=== PATIENT | male | born 1975 | race Caucasian/White ===

== ENCOUNTER 2020-06-04 11:39 | Inpatient (IN) | payer BC, SELFPAY ==
[2020-06-04] VITALS (22 sets, daily range): BP systolic 130–212; BP diastolic 89–127; PULSE 61–95; RESP 14–23; TEMP 36.4–36.8; O2SAT 96–100; BMI 27.4
--- NOTE | ~2020-06-04 | CT_ITS ---
EXAMINATION: CTA chest DATE: 06/05/2020 18:47 INDICATION: Mid chest pain. Evaluate for dissection. TECHNIQUE: Computed tomography (CT) of the chest was performed with 100 cc Omnipaque 350 intravenous contrast. Automated exposure control and iterative reconstruction technique were employed. Exam dose: 519.81 mGy-cm total exam DLP. COMPARISON: 06/04/2020 PA and lateral chest FINDINGS: Normal size and homogeneous enhancement of the thyroid gland. No hilar or mediastinal mass lesion or lymphadenopathy. No thoracic aortic aneurysm or dissection. No CT evidence of pulmonary embolism. Normal heart size. No pericardial or pleural effusion. There is discoid atelectasis and/or scarring in the dependent lower lobes primarily. Otherwise no pul monary infiltrate or consolidation or pulmonary mass lesion is detected. Degenerative changes of the lower cervical and thoracic and upper lumbar spine. IMPRESSION: No evidence of thoracic aortic dissection or pulmonary embolism Discoid atelectasis and/or scarring in the lower lobes Reviewed, dictated and finalized at [facility]. Reviewed, dictated and finalized at location [facility].
--- NOTE | ~2020-06-04 | XR_ITS ---
EXAMINATION: XR chest 2V DATE: 06/04/2020 12:10 INDICATION: Chest pain TECHNIQUE: PA and lateral views of the chest are obtained. COMPARISON: None available FINDINGS: The lungs are free of acute opacities. There is no pleural effusion or pneumothorax. The ca rdiomediastinal silhouette is normal. The visualized bones and soft tissues are unremarkable. IMPRESSION: 1. No acute cardiopulmonary abnormality. Reviewed, dictated and finalized at location [facility].
--- NOTE | 2020-06-04 11:44 | ECG_ITS ---
Measurements Intervals [place] Rate: 89 P: 60 MN: 163 QRS: 40 QRSD: 92 T: 59 QT: 345 QTc: 421 Interpretive Statements SINUS RHYTHM POSSIBLE LEFT ATRIAL ENLARGEMENT ANTEROSEPTAL INFARCT, AGE INDETERMINATE ABNORMAL ECG Electronically Signed On 06-04-2020 15:14:22 CDT by Chencho Harper D.O.
[2020-06-04] MEDS: ASPIRIN 81 MG CHEWABLE TABLET 324 MG PO (11:56)
[2020-06-04 11:59] LABS: Basophils Percent Auto 0.5 % (0.2-1.2); Eosinophils Absolute Auto 0.1 K/mm3 (0-0.3); Eosinophils Percent Auto 1.3 % (0-4.4); Hematocrit 49.4 % (42.0-52.0); Hemoglobin 16.9 g/dL (14.0-18.0); Immature Granulocyte Absolute 0.03 K/mm3 (0.00-0.031); Immature Granulocyte Percent A 0.4 % (0-0.5); Lymphocytes Absolute Auto 1.68 K/mm3 (0.9-3.2); Lymphocytes Percent Auto 20.5 % (18.3-44.2); Mean Corpuscular HGB Conc 34.2 g/dl (32-36); Mean Corpuscular Hemoglobin 27.4 pg (26-34); Mean Corpuscular Volume 80.2 fl (80-100); Mean Platelet Volume 10.3 fl (7.4-10.4); Monocytes Absolute Auto 0.4 K/mm3 (0.1-0.6); Monocytes Percent Auto 5.4 % (2.6-8.5); Neutrophils Absolute Auto 5.9 K/mm3 (1.3-6.7); Neutrophils Percent Auto 71.9 % (45.5-73.1); Platelet Count Result 234 k/mm3 (150-375); Red Blood Count 6.16 M/mm3 (4.6-6.20); White Blood Count 8.2 K/mm3 (4.5-10.0)
[2020-06-04 12:08] LABS: INR 0.9; Prothrombin Time 12.2 Seconds (11.1-14.7)
[2020-06-04 12:09] LABS: Partial Thromboplastin Time 26.8 SECONDS (22.3-36.8)
[2020-06-04 12:14] LABS: Anion Gap 11 mmol/L (8-16); Blood Urea Nitrogen 9 mg/dL (9-20); Calcium 9.5 mg/dL (8.4-10.2); Carbon Dioxide 26 mmol/L (22-30); Chloride 95 mmol/L (98-107); Estimated CRCL calculation 120 ml/min; Estimated Glomerular Filt Rate > 60; Glucose 503 mg/dL (75-110); Potassium 3.9 mmol/L (3.4-5.0); Sodium 132 mmol/L (137-145)
[2020-06-04] MEDS: FAMOTIDINE 20 MG/2 ML VIAL IV PUSH (12:18)
[2020-06-04] MEDS: NITROGLYCERIN OINTMENT 1 INCH DOSE TRANSDERM ×2 (12:18→20:53)
[2020-06-04] MEDS: SODIUM CHLORIDE 0.9% IV 1,000 ML 999 ML IV CONT (12:20)
--- NOTE | 2020-06-04 12:29 | PC.NURSE ---
Critical lab called to ER Nurse. I told EDP
[2020-06-04 12:33] LABS: NT Pro B Type Natriuretic Pept 473 PG/ML (5-100)
[2020-06-04 12:44] LABS: D Dimer 0.27 ug/mL (<0.48)
--- NOTE | 2020-06-04 12:44 | ED.GENADULT ---
HPI - General Adult General Chief complaint: Chest Pain <Paul Morley PA-C - Last Filed: 06/04/20 13:55> Stated complaint: Chest pain since <Paul Morley PA-C - Last Filed: 06/04/20 13:55> Time Seen by Provider: 06/04/20 11:52 <Paul Morley PA-C - Last Filed: 06/04/20 13:55> Source: patient and family <JOYCE Biggs Last Filed: 06/04/20 13:55> Mode of arrival: ambulatory <Paul Morley PA-C - Last Filed: 06/04/20 13:55> Limitations: no limitations <Paul Morley PA-C - Last Filed: 06/04/20 13:55> History of Present Illness HPI narrative: Patient is a 45-year-old male who presents with several days duration of midsternal left-sided chest pain is a dull aching pain that comes and goes lasting up to 30 minutes at a time evening when it began it lasted through most of the night and finally resolved had similar occurrences on Saturday again was up last night with the pain and had recurrence this morning 45 minutes prior to arrival patient denies similar occurrence in the past or recent illness. Patient has not taken anything for his symptoms. Pain radiates into the left shoulder and into the neck. Patient has not been seen for this <Paul Morley PA-C - Last Filed: 06/04/20 13:55> Related Data Home medications: Home Medications Medication Instructions Recorded Confirmed No Home Medications 06/04/20 06/04/20 <Paul Morley PA-C - Last Filed: 06/04/20 13:55> Allergies/adverse reactions: Allergies Allergy/AdvReac Type Severity Reaction Status Date / Time Penicillins Allergy Unknown Unknown Verified 06/04/20 14:30 <JOYCE Biggs Last Filed: 06/04/20 13:55> Review of Systems Review of Systems: All systems reviewed & are unremarkable except as noted in HPI and below <Paul Morley PA-C - Last Filed: 06/04/20 13:55> PMFSH Family History Family History: Family History Father Hypertension Mother Hypertension Family history of pancreatic cancer, Onset Age: 42 Patient's mother is Other Diabetes mellitus Family history of allergic disorder Family history of malignant neoplasm <Paul Morley PA-C - Last Filed: 06/04/20 13:55> Social History Social History: Social History (Updated 06/04/20 @ 12:45 by Paul Morley PA-C) Smoking packs per day: 1 Smoking cigarettes per day: 20.0 Years smoked: 20 Smoking pack-years: 20.00 Smoking status: Current every day smoker Alcohol intake: never Substance use: current Substance use type: marijuana and opiates Gender identity (if verbalized by the patient): Male Sexual Orientation (if Verbalized by the Patient): Straight or Heterosexual Spiritual care concerns: No <Paul Morley PA-C - Last Filed: 06/04/20 13:55> Exam Narrative: Exam Narrative: GENERAL: Well-appearing, well-nourished, and in no acute distress. HEAD: Normocephalic, atraumatic. EYES: PERRLA and EOMI. ENT: Nares clear, no rhinorrhea or epistaxis. Mucous membranes moist. CHEST: Clear to auscultation. No respiratory distress. No wheezes rales or rhonchi HEART: Regular rate and rhythm. No murmur heard. Normal peripheral pulses. ABDOMEN: Soft, nontender, nondistended EXTREMITIES: Normal range of motion. No edema. SKIN: Warm, dry, no rash. NEURO: No focal deficits. Alert and oriented x3. PSYCH: Normal mood and affect. 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 At the time of initial assessment, ABCs are intact, vital signs notable for patient who is quite hypertensive, also anxious appearing on exam. Lungs are clear. No infectious type symptoms. No shortness of breath. No ripping or tearing sensation to the patient's pain. He does continue to report left-s
[2020-06-04] MEDS: MORPHINE SULFATE 2 MG/ML INJ IV PUSH (12:47)
[2020-06-04] MEDS: METOPROLOL TARTRATE INJ 5 MG/5 ML VIAL IV PUSH ×3 (12:48→13:57)
[2020-06-04 12:51] LABS: Base Excess ABG 0.8 mEq/l (+/-2.0); Carboxyhemoglobin 6.9 % THb (0-2.0); Fractional Inspired Oxygen 21 %; HCO3 ABG 25.2 mEq/l (22.0-26.0); Methemoglobin ABG 0.2 %THb (0-1.5); Oxygen Content ABG 19.3 %vol (16.0-22.0); Oxygen Saturation ABG 96.1 % (95.0-100.0); Oxyhemoglobin 89.4 % THb (90.0-100.0); PCO2 ABG 39.9 mmHg (35.0-45.0); PO2 FiO2 Ratio Arterial Blood 3.86 %; Reduced Hemoglobin 3.5 %THb (0-5.0); Site Drawn RIGHT BRACHIAL; Total Hemoglobin 15.3 g/dL (12.0-18.0); pH ABG 7.419 (7.350-7.450)
[2020-06-04 12:52] LABS: Device ROOM AIR
[2020-06-04 12:52] LABS: Magnesium 1.8 mg/dL (1.6-2.3); Phosphorus 3.6 mg/dL (2.5-4.5)
[2020-06-04 13:03] LABS: Beta-Hydroxybutyrate/Acetoacetate 0.15 mmol/L (0.02-0.27)
[2020-06-04 13:11] LABS: Add Urine Microscopic? YES; Appearance Urine Clear (Clear); Bilirubin Urine Negative (Negative); Blood Urine 1+ (Negative); Color Urine Straw (Yellow); Glucose Urine UA 3+ mg/dL (Negative); Ketones Urine Negative (Negative); Leukocyte Esterase Ur Negative LEU/UL (Negative); Nitrate Urine Negative (Negative); Protein Urine 1+ mg/dL (Negative); RBC Urine 0-2 /hpf (0-2); Urobilinogen Urine Negative mg/dL (<2.0); WBC Urine 0-3 /hpf
[2020-06-04 13:16] LABS: Specific Grav Ur 1.035 (1.001-1.035)
[2020-06-04 13:29] LABS: Amphetamine Screen Urine Negative (Negative); Barbiturate Screen Urine Negative (Negative); Benzodiazepines Screen Urine Negative (Negative); Cannabinoid Screen Urine Positive (Negative); Cocaine Screen Urine Negative (Negative); Methadone Screen Urine Negative (Negative); Opiate Screen Urine Positive (Negative); Phencyclidine Screen Urine Negative (Negative)
[2020-06-04 13:35] LABS: Hemoglobin A1C 11.3 % (<5.7)
[2020-06-04 13:51] LABS: Cholesterol 298 mg/dL (0-200)
[2020-06-04] MEDS: METOPROLOL SUCCINATE EXT REL 25 MG TABCR PO (13:57)
[2020-06-04 13:59] LABS: LDL Cholesterol Direct 148 mg/dL
--- NOTE | 2020-06-04 14:10 | PM.IMHP ---
H&P: HPI History of Present Illness Date/Time: 06/04/20 14:10 Chief complaint: Chest pain. Narrative: Christopher Godwin is a 45-year-old male smoker with history of hypertension, no longer on medications after an 80 lb weight loss, who presented to the emergency department earlier today via private vehicle from home for evaluation of chest pain. Over the past several days he has had intermittent midsternal chest discomfort that is described almost as a heaviness or aching sensation, occasionally radiating to the left anterior chest and neck. He sees no pattern as to when the discomfort occurs and he has not noticed exertional chest discomfort. Initially he and his thought perhaps he was having indigestion, and she told him to eat a banana and apparently the discomfort went away. Due to continued discomfort, he came into the emergency department today where his blood pressure was 212/123 on arrival. With further questioning he was diagnosed with hypertension is 30s and it sounds as though he was on lisinopril for short period of time, but did not tolerate the drug due to fatigue and blurry vision. He has since lost 80 lb and has maintained that weight for about a year and a half, and notes that when he periodically checks his blood pressure in the community that it is never over 140/85. He was given metoprolol in the emergency department and nitro paste, with some improvement in his blood pressures. He is complaining of a headache at this time, but goes on to state that he has had a frontal headache for about the past 1 week. He has not had fever, chills, sweats, cold or flu symptoms, pleuritic pain, palpitations, shortness of breath, nausea, vomiting, sweats, lightheadedness, and dizziness. Also of note, his random glucose was over 500, with further questioning he notes that he ?drinks tea and water all the time? but has not noticed a change in his thirst or urine output. He has not had an eye exam for about a year, but thinks he may need a new prescription. He denies new blurry vision. No paresthesias or poor healing wounds. At this time he is not having any chest discomfort and has no complaints. Review of Systems Review of Systems: Narrative: Twelve systems were reviewed with pertinent positives and negatives as per HPI. No fever, chills, or sweats. No recent travel or sick contacts. He denies cold and flu symptoms. No orthopnea or PND. He does snore somewhat. He denies daytime somnolence. Weight has remained stable for the past year and a half after an 80 lb weight loss, which was intentional. No history of venous thromboembolism. He denies dysuria and hematuria. Except as documented, all other systems were reviewed and are negative. [facility] Past Medical History Medical History Dyslipidemia Hypertension Tobacco dependence Type 2 diabetes mellitus Surgical History Surgical History History of right inguinal hernia repair (~02/20/16) Family History Family History Father Hypertension Diabetes mellitus Parkinson disease Mother Hypertension Family history of pancreatic cancer, Onset Age: 42 Patient's mother is Other Family history of allergic disorder Family history of malignant neoplasm Social History Social History Social History: Surrogate decision maker: Anaid Godwin, . Code status: Full code. Smoking packs per day: 1 Smoking cigarettes per day: 20.0 Years smoked: 20 Smoking pack-years: 20.00 Smoking status: Current every day smoker Tobacco type: cigarettes Alcohol intake: never Substance use: current Substance use type: marijuana Living arrangements: with family Additional living arrangements comments: Patient lives with h
[2020-06-04 14:26] LABS: Triglycerides 637 mg/dL (<150)
--- NOTE | 2020-06-04 14:27 | ADMGEN ---
This patient, Christopher Godwin, was admitted to IMU Room 207-01. Patient/family oriented to hospital policies and general routines including ID bracelet, bed and alarms, visiting hours, pain management, procedures, bathroom and other care routines, personal items, smoking policy, room service/diet, and visiting hours. Valuables list has been completed. Information on how to activate the Rapid Response Team has been discussed. Patient/Family are encouraged to report perceived risks to care and to ask questions if they do not understand what they are told or what they should do.
[2020-06-04 14:34] LABS: Glucose Point of Care 320 (65-105)
--- NOTE | 2020-06-04 14:50 | PM.CNCAR ---
Assessment and Plan Assessment and plan (1) Non-STEMI (non-ST elevated myocardial infarction): Code(s): I21.4 - Non-ST elevation (NSTEMI) myocardial infarction Status: Acute Assessment and Plan: Probably related to hypertensive emergency but cannot exclude underlying CAD /plaque rupture. Continue to trend troponins. Start aspirin 81 mg p.o. daily. Atorvastatin 20 mg p.o. daily. Metoprolol 25 mg p.o. b.i.d.. Losartan 25 mg p.o. dailyy. 2D echocardiogram with Doppler . Ischemic workup will be dependent on trend of troponins and response to treatment and results of sonogram. Continue nitroglycerin paste. Will check a lipid panel. Once his blood pressure is reasonably controlled, heparin or Lovenox to be given (2) Hypertensive emergency: Code(s): I16.1 - Hypertensive emergency Status: Acute Assessment and Plan: as above. Up titrate as needed. 10 mg IV hydralazine p.r.n. (3) Tobacco dependence: Code(s): F17.200 - Nicotine dependence, unspecified, uncomplicated Status: Acute Assessment and Plan: tobacco cessation advised (4) Dyslipidemia: Code(s): E78.5 - Hyperlipidemia, unspecified Status: Acute Assessment and Plan: will start statin (5) New onset type 2 diabetes mellitus: Code(s): E11.9 - Type 2 diabetes mellitus without complications Status: Acute Assessment and Plan: initiate workup per hospitalist History of Present Illness History of Present Illness Consult date/time: 06/04/20 14:50 Requesting physician: Paul Morley PA-C Consult reason: chest pain Reason For Visit: non stemi/hyperglycemia/hypertensive emergency Narrative: Date of service 06/04/2020 Reason consultation: Chest pain, positive troponins, hypertensive emergency History: patient is a 45-year-old male who has known hypertension. He reportedly lost a lot of weight several years ago and had been following his blood pressure on his own. Reportedly his blood pressure had not been significantly elevated. However, 2 days ago he started to develop some chest pain. He had chest pain that felt as if a weight with sitting on him and that somebody had hit his sternum. It occurred off and on for several hours. It would last for 5-10 minutes at a time and then go away with shortly thereafter come back. Eventually it did finally subsided and he woke up yesterday morning feeling fine. He felt fine throughout most of the day but yesterday evening after eating dinner, he had another episode of chest pain but it was located in the left upper chest. He ate a banana and his symptoms resolved. He woke up this morning to go to work and his symptoms recurred as he was driving to work and at this time was severe and he came to hospital for further evaluation. he has no associated nausea, shortness of breath or diaphoresis. His chest discomfort does radiate into the left shoulder blade area. In the ER his blood pressure was markedly elevated at greater than 210 systolic. He was given several rounds of metoprolol, nitroglycerin as well as morphine. chest pain symptoms have improved and his blood pressure has come down some but is still very elevated. Troponins are slightly elevated . Patient denies any syncope, presyncope, paroxysmal nocturnal dyspnea, orthopnea, edema or palpitations. No unusual shortness of breath. His glucose is also found to be markedly elevated and his A1c is greater than 11 Review of Systems Review of Systems: All systems reviewed & are unremarkable except as noted in HPI and below Constitutional: Constitutional: Denies weakness Eyes: Eyes: Denies blurry vision ENT: Reports Normal hearing present Cardiovascular: Cardiovascular: Reports chest pain Respiratory: Respiratory: Denies dyspnea Gastrointestinal: Gastrointestinal: Denies abdominal pain Genitourinary: Genitourinary: Denies dysuria Musculoskeletal: Musculoskeletal: D
[2020-06-04 15:35] LABS: LDL Cholesterol Direct 129 mg/dL
[2020-06-04 15:41] LABS: Cholesterol 238 mg/dL (0-200); HDL Direct 29 mg/dL
[2020-06-04 15:42] LABS: Triglycerides 546 mg/dL (<150)
--- NOTE | 2020-06-04 16:22 | ECG_ITS ---
Measurements Intervals [place] Rate: 64 P: 38 MD: 174 QRS: 7 QRSD: 91 T: 51 QT: 405 QTc: 419 Interpretive Statements SINUS RHYTHM BASELINE ARTIFACT- I, II, III, AVF NORMAL ECG Electronically Signed On 06-04-2020 15:19:03 CDT by Chencho Harper D.O.
[2020-06-04] MEDS: ATORVASTATIN 20 MG TABLET PO (16:27)
[2020-06-04] MEDS: LOSARTAN POTASSIUM 25 MG TABLET PO (16:27)
[2020-06-04 16:58] LABS: Glucose Point of Care 251 (65-105)
[2020-06-04] MEDS: INSULIN ASPART (*BKC) 100 UNITS/ML SUB-Q (17:41)
--- NOTE | 2020-06-04 19:22 | ECG_ITS ---
Measurements Intervals [place] Rate: 66 P: 40 [place]: 171 QRS: 14 QRSD: 90 T: 14 QT: 390 QTc: 409 Interpretive Statements SINUS RHYTHM BORDERLINE T WAVE ABNORMALITY- INFERIOR LEADS BASELINE ARTIFACT- II, AVR, AVL, AVF BORDERLINE ECG Electronically Signed On 06-04-2020 17:13:15 CDT by Chencho Harper D.O.
[2020-06-04 20:30] LABS: Glucose Point of Care 362 (65-105)
[2020-06-04] MEDS: NICOTINE (*PBKC) 14 MG PATCH 1 PATCH TRANSDERM (20:55)
[2020-06-04] MEDS: hydrALAZINE HCL 20 MG/ML VIAL 10 MG IV PUSH (20:56)
[2020-06-04] MEDS: METOPROLOL TARTRATE 25 MG TABLET PO (20:59)
[2020-06-04] MEDS: INSULIN GLARGINE (*BKC) 100 UNITS/ML 13 UNITS SUB-Q (20:59)
[2020-06-04] MEDS: ACETAMINOPHEN 325 MG TABLET 650 MG PO (21:01)
[2020-06-04] MEDS: ENOXAPARIN 100 MG/ML SYRINGE 90 MG SUB-Q (21:25)
--- NOTE | 2020-06-04 21:26 | PC.NURSE ---
Dr White transferring pt to ICU for nitro drip, unable to reach Dr Bloom per 1 phone call. This nurse called DR Bloom and left message that a pt was transferring from IMU to ICU and to please call back to discuss transfer. No personal info left on message.
[2020-06-04] MEDS: NITROGLYCERIN/D5W 200 MCG/ML 50 MG/250 ML BTL 6 MG IV CONT (22:23)
--- NOTE | 2020-06-04 23:23 | PC.NURSE ---
This patient, Christopher Godwin, was transferred to ICU 10 on 06/04/20 at 2220. Personal belongings sent with patient. Belongings list checked and signed with receiving Vivien Sharma RN. Report given to Vivien Worley RN. Appropriate documentation sent with patient.
[2020-06-05] VITALS (31 sets, daily range): BP systolic 115–175; BP diastolic 53–110; PULSE 62–84; RESP 17–24; TEMP 36.3–36.7; O2SAT 95–100
--- NOTE | 2020-06-05 | ECHO_ITS ---
Patient Info Name: Christopher Godwin Age: 45 years : 1975 Gender: Male Ht: 71 in Wt: 194 lbs BSA: 2.11 m2 HR: 65 bpm BP: 158 / 104 mmHg Heart Rhythm: Sinus Rhythm Technical Quality: Good Exam Date: 06/05/2020 9:45 AM Exam Location: [facility] Pulmonary Patient Status: Inpatient Admit Date: 06/05/2020 Staff Ordering Physician: Gurmeet White MD Quality Nurse: Claudio Badillo RDCS Attending Provider: Bandar Rivera MD Referring Physician: Cindy GLYNN; Exam Type: CA echo doppler color flow Study Info Indications R07.9 - Chest pain, unspecified Complete two-dimensional, color flow and Doppler transthoracic echocardiogram is performed. Strain analysis performed. History/Risk Factors Chest pain w/ significantly elevated trops; HTN, DM2. Summary 1. Complete two-dimensional, color flow and Doppler transthoracic echocardiogram is performed. 2. Strain analysis performed. 3. Left ventricular chamber dimension is normal. 4. Left ventricular systolic function is normal, estimated at 60-65%. 5. There is mildly increased left ventricular wall thickness. 6. The left ventricular diastolic function is grade I diastolic dysfunction. 7. Global longitudinal strain is abnormal at -15 %. 8. There is mild mitral valve regurgitation. Left Ventricle Left ventricular chamber dimension is normal. Left ventricular systolic function is normal, estimated at 60-65%. There is mildly increased left ventricular wall thickness. The left ventricular diastolic function is grade I diastolic dysfunction. Global longitudinal strain is abnormal at -15 %. Right Ventricle Right ventricular chamber dimension is normal. Right ventricular systolic function is normal. Left Atria Left atrial chamber dimension is normal. Right Atria Right atrial chamber dimension is normal. Atrial Septum Intact interatrial septum visualized by color flow imaging. Aortic Valve The aortic valve is trileaflet. There is no aortic valve sclerosis. There is no aortic valve stenosis. There is trace aortic valve regurgitation. Pulmonic Valve The pulmonic valve is normal. There is no pulmonic valve stenosis. There is trace pulmonic regurgitation. Mitral Valve The mitral valve has normal leaflets. There is no mitral valve stenosis. There is mild mitral valve regurgitation. Tricuspid Valve The tricuspid valve leaflets are normal. There is no significant tricuspid valve stenosis. There is trace tricuspid valve regurgitation. Pericardium/Pleural The pericardium appears normal. There is no pericardial effusion. Inferior Vena Cava Normal inferior vena cava with >50% collapse upon inspiration consistent with normal right atrial pressure, 5 mmHg. Aorta The aortic root size at the sinus of Valsalva is normal. The prox ascending aorta size is normal. Left Ventricular Outflow Tract Name Value Normal LVOT 2D LVOT Diameter 2.0 cm LVOT Doppler LVOT Peak Gradient 5 mmHg LVOT Mean Gradient 3 mmHg LVOT VTI 21 cm
[2020-06-05 04:12] LABS: Hemoglobin 15.6 g/dL (14.0-18.0); Mean Corpuscular HGB Conc 34.7 g/dl (32-36); Mean Corpuscular Hemoglobin 27.8 pg (26-34); Mean Corpuscular Volume 80.1 fl (80-100); Mean Platelet Volume 10.2 fl (7.4-10.4); Platelet Count Result 238 k/mm3 (150-375); Red Blood Count 5.62 M/mm3 (4.6-6.20); Red Cell Distribution Width 13.1 % (11.5-14.5); White Blood Count 10.8 K/mm3 (4.5-10.0)
[2020-06-05 04:25] LABS: Alanine Aminotransferase 30 U/L (4-50); Albumin Level 3.6 g/dL (3.5-5.1); Alkaline Phosphatase 99 U/L (38-126); Anion Gap 5 mmol/L (8-16); Aspartate Amino Transferase 98 U/L (17-59); Bilirubin,Total 0.4 mg/dL (0.2-1.3); Blood Urea Nitrogen 11 mg/dL (9-20); Calcium 9.2 mg/dL (8.4-10.2); Carbon Dioxide 27 mmol/L (22-30); Chloride 101 mmol/L (98-107); Estimated CRCL calculation 142 ml/min; Estimated Glomerular Filt Rate > 60; Glucose 324 mg/dL (75-110); Potassium 4.4 mmol/L (3.4-5.0); Sodium 133 mmol/L (137-145)
--- NOTE | 2020-06-05 06:39 | ECG_ITS ---
Measurements Intervals [place] Rate: 74 P: 47 [place]: 169 QRS: 51 QRSD: 93 T: 36 QT: 378 QTc: 421 Interpretive Statements SINUS RHYTHM NONSPECIFIC T-WAVE ABNORMALITY- INF/HIGH LAT LEADS BORDERLINE ECG Electronically Signed On 06-05-2020 7:55:39 CDT by Chencho Harper D.O.
--- NOTE | 2020-06-05 07:40 | PM.IMPN ---
Progress Note: A&P Assessment and Plan (1) Non-STEMI (non-ST elevated myocardial infarction): Code(s): I21.4 - Non-ST elevation (NSTEMI) myocardial infarction Status: Acute Assessment and Plan: patient presents with complaints of intermittent midsternal chest pain. Initial EKG showed QS pattern in the anterior septal leads concerning for old PR. Repeat EKG however essentially normal (possibly lead placement issues on the 1st EKG). EKG this morning showing nonspecific T wave changes int he high lateral leads. Troponin this morning is up to 20. Continue medical management with Metoprolol, Cozaar, Lipitor, ASA. He remains on NTG drip. Appreciate Cardiology input. Will need ischemic evaluation when off the drip. (2) Hypertensive emergency: Code(s): I16.1 - Hypertensive emergency Status: Acute Assessment and Plan: Blood pressure was 212/123 on arrival. BP has been noted to be elevated as far back as 2014 (184/110). He has HTN emergency given the NSTEMI in light of the severe HTN. He has been started on Cozaar and Metoprolol. Currently on NTG drip as well. Will monitor for now and see how his BP does after morning medications. Wean NTG drip as tolerated. (3) New onset type 2 diabetes mellitus: Code(s): E11.9 - Type 2 diabetes mellitus without complications Status: Acute Assessment and Plan: A1c 11.3%. The patient's blood glucose was reviewed on 06/05. Glucose remains poorly controlled. Continue AccuCheks covering with sliding scale. Hypoglycemia protocol available as needed. Started on Lantus last night but glucose 322 this morning. Advance Lantus. Start meal time Novolog. Continue Diabetic diet. Cephalometric Analyst and ems educator to see. Convert to oral regiment with Lantus at night before discharge. (4) Tobacco dependence: Code(s): F17.200 - Nicotine dependence, unspecified, uncomplicated Status: Acute Assessment and Plan: Patient smokes 1ppd. Smoking cessation is imperative and patient was educated about the benefits of smoking cessation. Continue nicotine patch. (5) Dyslipidemia: Code(s): E78.5 - Hyperlipidemia, unspecified Status: Acute Assessment and Plan: TC 298, LDL 148 and HDL 29. LFTs notes with mild elevation of AST. Advance to high dose atorvastatin. (6) DVT prophylaxis: Code(s): Z29.9 - Encounter for prophylactic measures, unspecified Status: Acute Assessment and Plan: Heparin drip added now Subjective Date/time seen: 06/05/20 07:40 Interval history: 45yo male with hx of HTN here for chest pain and found to have HTN emergency, hyperglycemia/new onset DM, and NSTEMI. Patient currently on NTG drip. This was decreased overnight due to improved BP but then BP climbed around 4AM so NTG fdrip advanced back up to 20mcg/min. He denies CP. Slept well. No SOB. No hx of DM. Has had recent weight loss. Has had HTN for many years but had weight loss of 90# and also states the BP medication made him feel funny. He has been off BP medications for years. He has checked his BP in the community and his SBP runs about 150-160. He smokes 1ppd. No n/v. Slight HODGES today. Exam Narrative: Exam Narrative: AF 97.4 151/98 67 20 97% ra Gen - NARD lying semi recumbent in bed HEENT - NC/AT. moist mucous Membranes neck - supple. 2+ carotid upstrokes without bruits. Chest - CTA bilaterally, nml RR CV - RRR S1/S2. Telemetry showing no significant dysrhythmias Abd - Soft, NT/ND, Positive BS. no hepatic splenomegaly. Ext - No pedal edema. 2+ femoral pulses without bruits. Mild adenopathy noted. 1+ PT pulses bilaterally. 2+ DP right 1+ on left Ps
[2020-06-05 07:42] LABS: Glucose Point of Care 322 (65-105)
[2020-06-05] MEDS: ASPIRIN 81 MG CHEWABLE TABLET PO (08:26)
[2020-06-05] MEDS: METOPROLOL TARTRATE 25 MG TABLET PO ×2 (08:26→20:34)
[2020-06-05] MEDS: LOSARTAN POTASSIUM 25 MG TABLET PO ×2 (08:27→10:56)
[2020-06-05] MEDS: INSULIN ASPART (*BKC) 100 UNITS/ML SUB-Q ×5 (08:28→17:44)
--- NOTE | 2020-06-05 09:38 | PM.PNCARD ---
Progress Note: A&P Assessment and Plan (1) Non-STEMI (non-ST elevated myocardial infarction): Code(s): I21.4 - Non-ST elevation (NSTEMI) myocardial infarction Status: Acute Assessment and Plan: increasingly suspect plaque rupture rather than hypertensive emergency. Will call integrated pest management technician in stat to perform echocardiogram. Continue high-dose statin, aspirin. Will start heparin drip per protocol. Continue metoprolol, losartan. Will increase losartan to 50 mg daily. Catheterization to be performed but timing is pending (2) Hypertensive emergency: Code(s): I16.1 - Hypertensive emergency Status: Acute Assessment and Plan: as above. Up titrate as needed. 10 mg IV hydralazine p.r.n. (3) Tobacco dependence: Code(s): F17.200 - Nicotine dependence, unspecified, uncomplicated Status: Acute Assessment and Plan: tobacco cessation advised (4) Dyslipidemia: Code(s): E78.5 - Hyperlipidemia, unspecified Status: Acute Assessment and Plan: on statin (5) New onset type 2 diabetes mellitus: Code(s): E11.9 - Type 2 diabetes mellitus without complications Status: Acute Assessment and Plan: initiate workup per hospitalist Subjective Date/time seen: 06/05/20 09:38 Interval history: 45yo male with hx of HTN here for chest pain and found to have HTN emergency, hyperglycemia/new onset DM, and NSTEMI. Patient currently on NTG drip. date of service 06/05/2020: I started him on a nitroglycerin drip last night due to persistently elevated blood pressure elevation. Additionally his troponin continued to rise and I started him on Lovenox 1 milligram/kilogram subcu x1. Tolerated this well. Right now he has no chest pain. Mild headache. No shortness of breath Review of Systems Review of Systems: All systems reviewed & are unremarkable except as noted in HPI and below Constitutional: Constitutional: Denies excessive sweating, Reports headache(s) and Denies weakness Eyes: Eyes: Denies blurry vision ENT: Reports Normal hearing present, Reports headache(s) and Denies neck pain Cardiovascular: Cardiovascular: Reports chest pain and Denies dyspnea Respiratory: Respiratory: Denies dyspnea Gastrointestinal: Gastrointestinal: Denies abdominal pain Genitourinary: Genitourinary: Denies dysuria Musculoskeletal: Musculoskeletal: Denies neck pain Integumentary/Breasts: Skin/Breast: Denies dry skin Neurologic: Reports Normal hearing present, Denies behavioral changes, Reports headache(s) and Denies weakness Psychiatric: Psychiatric: Denies behavioral changes Endocrine: Endocrine: Denies excessive sweating Hematologic/Lymphatic: Hematologic/Lymphatic: Denies easy bleeding Allergic/Immunologic: Allergic/Immunologic: Denies GI upset with certain foods Exam Narrative: Exam Narrative: patient awake alert. Pleasant in no acute distress Const: General: comfortable and no acute distress HENMT: General nose exam: Normal nares present Eyes: Sclera: sclerae normal Neck: Neck: supple and no JVD Chest: Other: no reproducible chest wall pain to palpation Resp: Auscultation: clear to auscultation bilaterally Cardio: Rate: regular rate Rhythm: regular rhythm Heart sounds: no murmurs Skin: General skin exam: normal color Neuro: Cranial nerves: Yes Normal hearing present Cognition (Neuro): normal cognition Speech: normal speech Extrem: General: normal to inspection, no edema and no pedal edema Psych: Mental Status: mental status grossly normal Objective Data Vital Signs Vital Signs: Vital Signs - 24 hr 06/04/20 11:41 06/04/20 11:57 06/04/20 12:48 Temperature 36.5 C Pulse Rate 95 94 76 Respiratory Rate 18 14 Blood Pressure 212/123 H 197/115 H Pulse Oximetry 100 99 06/04/20 13:12 06/04/20 13:18 06/04/20 13:57 Temperature Pulse Rate 67 67 69 Respiratory Rate 23 H Blood Pressure 189/127 H
[2020-06-05 09:42] LABS: INR 0.9; Partial Thromboplastin Time 27.7 SECONDS (22.3-36.8); Prothrombin Time 12.2 Seconds (11.1-14.7)
[2020-06-05] MEDS: ATORVASTATIN 40 MG TABLET PO (10:56)
[2020-06-05] MEDS: HEPARIN SOD/D5W 100 UNITS/ML 25,000 UNITS/250 ML BAG 10 UNITS IV CONT (10:57)
[2020-06-05 11:50] LABS: Glucose Point of Care 363 (65-105)
--- NOTE | 2020-06-05 14:40 | WPDCNINT ---
Assessment and Plan Assessment and plan (1) Non-STEMI (non-ST elevated myocardial infarction): Code(s): I21.4 - Non-ST elevation (NSTEMI) myocardial infarction Status: Acute Assessment and Plan: Cardiology recommendations appreciated. Echo has been performed. Continue high-dose statin and aspirin. He has been started on heparin drip. Continue to monitor APTT and for any bleeding signs. Losartan dose has been increased to 50 once a day. Continue metoprolol. He will likely need to have cardiac catheterization but timing is uncertain. Likely cardiac catheterization in the morning. Wean nitroglycerin drip if tolerated. (2) Hypertensive emergency: Code(s): I16.1 - Hypertensive emergency Status: Acute Assessment and Plan: Wean nitroglycerin drip if tolerated. Continue losartan with 50 mg Once a day which has been increased today by the breadman. Continue metoprolol as well. Continue hydralazine as p.r.n. for blood pressure control. (3) New onset type 2 diabetes mellitus: Code(s): E11.9 - Type 2 diabetes mellitus without complications Status: Acute Assessment and Plan: Continue insulin sliding scale. He has been started on Lantus last night. He is on prandial NovoLog as well. Dietitian and diabetic Education consult has been requested. (4) Dyslipidemia: Code(s): E78.5 - Hyperlipidemia, unspecified Status: Acute Assessment and Plan: Continue high-dose statin. (5) Tobacco dependence: Code(s): F17.200 - Nicotine dependence, unspecified, uncomplicated Status: Acute Assessment and Plan: encouraged to stop smoking. He is currently on nicotine patch. (6) DVT prophylaxis: Code(s): Z29.9 - Encounter for prophylactic measures, unspecified Status: Acute Assessment and Plan: IV heparin drip. Additional Plan DVT prophylaxis with systemic anticoagulation GI prophylaxis not indicated full code critical care time spent more than 34 minutes Due to a high probability of clinically significant, life threatening deterioration, the patient required my highest level of preparedness to intervene emergently and I personally spent this critical care time directly and personally managing the patient. This critical care time included obtaining a history; examining the patient; pulse oximetry; ordering and review of studies; arranging urgent treatment with development of a management plan; evaluation of patient's response to treatment; frequent reassessment; and discussions with other providers. It was exclusive of separately billable procedures and treating other patients and teaching time. Please see Assessment and Plan section and the rest of the note for further information on patient assessment and treatment. Transport Coordinator Consult Note Consult date: 06/05/20 Time Seen: 12:48 HPI: Christopher Godwin is a 45 year old male With past medical history of hypertension, hyperlipidemia and significant smoking history who came into the ED with complaints of chest pain. He has been noncompliant to the medication and has not been taking his antihypertensive medication for sometime now. Chest pain was intermittent, heaviness and aching sensation with radiation to the left anterior chest and neck. His found to have significant elevated blood pressure. He was initially admitted to IMU. later he was transferred to ICU because of significant troponin leak and hypertensive emergency. He was started on nitroglycerin drip with reasonable good control of his blood pressure. He denied have any chest pain at the time of my evaluation. He denied have any headache focal neurological weakness visual symptoms hematuria abdominal pain nausea and vomiting. He denied have any shortness of breath as well. Review of Systems Review of Systems: Narrative: A comprehensive review of syste
[2020-06-05] MEDS: NICOTINE (*PBKC) 14 MG PATCH 1 PATCH TRANSDERM (15:42)
[2020-06-05 16:18] LABS: Glucose Point of Care 392 (65-105)
[2020-06-05 17:28] LABS: Partial Thromboplastin Time 29.8 SECONDS (22.3-36.8)
[2020-06-05] MEDS: HEPARIN SODIUM 5,000 UNITS/ML VIAL 4000 UNITS IV PUSH (17:41)
[2020-06-05] MEDS: ACETAMINOPHEN 325 MG TABLET 650 MG PO (20:02)
[2020-06-05] MEDS: INSULIN GLARGINE (*BKC) 100 UNITS/ML 20 UNITS SUB-Q (20:05)
[2020-06-05] MEDS: NITROGLYCERIN/D5W 200 MCG/ML 50 MG/250 ML BTL IV CONT (22:27)
[2020-06-06] VITALS (21 sets, daily range): BP systolic 118–176; BP diastolic 73–108; PULSE 61–84; RESP 14–20; TEMP 36.4–37.1; O2SAT 97–100
[2020-06-06 00:06] LABS: Partial Thromboplastin Time 42.5 SECONDS (22.3-36.8)
[2020-06-06] MEDS: HEPARIN SODIUM 5,000 UNITS/ML VIAL 4000 UNITS IV PUSH (00:17)
[2020-06-06] MEDS: HEPARIN SOD/D5W 100 UNITS/ML 25,000 UNITS/250 ML BAG 18 UNITS IV CONT (04:54)
[2020-06-06 06:50] LABS: Hematocrit 41.9 % (42.0-52.0); Hemoglobin 14.5 g/dL (14.0-18.0); Mean Corpuscular HGB Conc 34.6 g/dl (32-36); Mean Corpuscular Hemoglobin 27.5 pg (26-34); Mean Corpuscular Volume 79.5 fl (80-100); Mean Platelet Volume 10.6 fl (7.4-10.4); Platelet Count Result 212 k/mm3 (150-375); Red Blood Count 5.27 M/mm3 (4.6-6.20); White Blood Count 8.9 K/mm3 (4.5-10.0)
[2020-06-06 07:01] LABS: Partial Thromboplastin Time 63.4 SECONDS (22.3-36.8)
[2020-06-06 07:03] LABS: Alanine Aminotransferase 21 U/L (4-50); Albumin Level 3.7 g/dL (3.5-5.1); Alkaline Phosphatase 100 U/L (38-126); Anion Gap 6 mmol/L (8-16); Aspartate Amino Transferase 36 U/L (17-59); Bilirubin,Total 0.5 mg/dL (0.2-1.3); Blood Urea Nitrogen 11 mg/dL (9-20); Carbon Dioxide 29 mmol/L (22-30); Chloride 98 mmol/L (98-107); Estimated CRCL calculation 124 ml/min; Estimated Glomerular Filt Rate > 60; Glucose 267 mg/dL (75-110); Magnesium 1.9 mg/dL (1.6-2.3); Potassium 3.9 mmol/L (3.4-5.0); Sodium 133 mmol/L (137-145)
[2020-06-06] MEDS: HEPARIN SODIUM 5,000 UNITS/ML VIAL 3500 UNITS IV PUSH ×2 (07:12→14:12)
--- NOTE | 2020-06-06 07:20 | WPDINTPN ---
Progress Note: A&P Assessment and Plan (1) Non-STEMI (non-ST elevated myocardial infarction): Code(s): I21.4 - Non-ST elevation (NSTEMI) myocardial infarction Status: Acute Assessment and Plan: patient now chest pain-free and troponin trending down. continue heparin infusion, high-dose statin and aspirin. he is also on metoprolol and losartan plan for cardiac catheterization but timing is uncertain. Wean nitroglycerin drip if tolerated by blood pressure (2) Hypertensive emergency: Code(s): I16.1 - Hypertensive emergency Status: Acute Assessment and Plan: continue and wean nitroglycerin drip if tolerated. Continue losartan with 50 mg and metoprolol and IV p.r.n. hydralazine and Lopressor (3) New onset type 2 diabetes mellitus: Code(s): E11.9 - Type 2 diabetes mellitus without complications Status: Acute Assessment and Plan: Continue insulin sliding scale. Lantus dose increased continue with meal insulin Dietitian and diabetic Education consult has been requested. (4) Dyslipidemia: Code(s): E78.5 - Hyperlipidemia, unspecified Status: Acute Assessment and Plan: Continue high-dose statin. (5) Tobacco dependence: Code(s): F17.200 - Nicotine dependence, unspecified, uncomplicated Status: Acute Assessment and Plan: encouraged to stop smoking. He is currently on nicotine patch as per patient's request (6) DVT prophylaxis: Code(s): Z29.9 - Encounter for prophylactic measures, unspecified Status: Acute Assessment and Plan: IV heparin drip. Additional Plan DVT prophylaxis with systemic anticoagulation GI prophylaxis not indicated full code critical care time spent more than 30 minutes Due to a high probability of clinically significant, life threatening deterioration, the patient required my highest level of preparedness to intervene emergently and I personally spent this critical care time directly and personally managing the patient. This critical care time included obtaining a history; examining the patient; pulse oximetry; ordering and review of studies; arranging urgent treatment with development of a management plan; evaluation of patient's response to treatment; frequent reassessment; and discussions with other providers. It was exclusive of separately billable procedures and treating other patients and teaching time. Please see Assessment and Plan section and the rest of the note for further information on patient assessment and treatment. Subjective Date/time seen: 09/07/20 Patient feels better today. He denies any chest pain or shortness of breath. Slept well. Complains of back pain from lying in bed all day. No other complaints. Continues to be on heparin and nitroglycerin infusion. Nitroglycerin infusion was discontinued yesterday able to had to be restarted due to elevated blood pressure. He had short run of an NSVT overnight Patient denies fever, chest pain, shortness of breath, cough, nausea vomiting, abdominal pain, diarrhea, headache or constipation. Review of Systems Review of Systems: All systems reviewed & are unremarkable except as noted in HPI and below ( subjective) Exam Narrative: Exam Narrative: General awake and alert not in acute distress Eyes PERRLA normal conjunctiva no discharge HEENT no discharge Neck supple dull tenderness no deformity JVD not elevated CVS S1-S2 no murmur Respiratory no wheezes or crepitation respiration nonlabored GI soft nontender nondistended no hepatosplenomegaly Chest wall no tenderness or deformity Back nontender no deformity PROGRAM PROJECT ANALYST alert oriented x3 and grossly nonfocal neurological exam Psychiatric cooperative appropriate mood and affect Musculoskeletal normal range of motion or joint swelling no rashes Extremities no edema Objective Data Vital Signs Vital Signs: Vital Signs -
[2020-06-06 08:00] LABS: Glucose Point of Care 259 (65-105)
[2020-06-06] MEDS: INSULIN ASPART (*BKC) 100 UNITS/ML SUB-Q ×4 (08:38→17:40)
[2020-06-06] MEDS: ACETAMINOPHEN 325 MG TABLET 650 MG PO ×2 (08:48→12:48)
--- NOTE | 2020-06-06 09:44 | PM.IMPN ---
Progress Note: A&P Assessment and Plan (1) Non-STEMI (non-ST elevated myocardial infarction): Code(s): I21.4 - Non-ST elevation (NSTEMI) myocardial infarction Status: Acute Assessment and Plan: Patient presents with complaints of intermittent midsternal chest pain. Initial EKG showed QS pattern in the anterior septal leads concerning for old [place]. Repeat EKG however essentially normal (possibly lead placement issues on the 1st EKG). EKG 06/05/20 showing nonspecific T wave changes in the high lateral leads. Troponin climbed to 20.9. Continue medical management with Metoprolol, Cozaar, Lipitor, ASA. He remains on NTG drip. Appreciate Cardiology input. Plan for ischemic evaluation later today or possibly tomorrow. (2) Hypertensive emergency: Code(s): I16.1 - Hypertensive emergency Status: Acute Assessment and Plan: Blood pressure was 212/123 on arrival. BP has been noted to be elevated as far back as 2014 (184/110). He has HTN emergency given the NSTEMI in light of the severe HTN. He has been started on Cozaar and Metoprolol. He remains on NTG drip as well. Anti-HTN medications advanced in hopes of being able to wean the NTG drip as tolerated. (3) New onset type 2 diabetes mellitus: Code(s): E11.9 - Type 2 diabetes mellitus without complications Status: Acute Assessment and Plan: A1c 11.3%. The patient's blood glucose was reviewed on 06/06. Glucose remains poorly controlled. Continue AccuCheks covering with sliding scale. Hypoglycemia protocol available as needed. Advanced Lantus last night and fasting glucose better at 259 this morning. Continue to advance Lantus. Continue meal time Novolog. Continue Diabetic diet. Ultrasound Specialist and prosthodontist/educator to see. Convert to oral regiment with Lantus at night before discharge. (4) Tobacco dependence: Code(s): F17.200 - Nicotine dependence, unspecified, uncomplicated Status: Acute Assessment and Plan: Patient smokes 1ppd. Smoking cessation is imperative and patient was educated about the benefits of smoking cessation. Continue nicotine patch. (5) Dyslipidemia: Code(s): E78.5 - Hyperlipidemia, unspecified Status: Acute Assessment and Plan: TC 298, LDL 148 and HDL 29. LFTs notes with mild elevation of AST. Continue high dose atorvastatin. (6) DVT prophylaxis: Code(s): Z29.9 - Encounter for prophylactic measures, unspecified Status: Acute Assessment and Plan: Heparin drip Subjective Date/time seen: 06/06/20 09:44 Interval history: 45yo male with hx of HTN here for chest pain and found to have HTN emergency, hyperglycemia/new onset DM, and NSTEMI. Patient currently on NTG and heparin drip. No issues overnight per RN. Patient did have a run of NSVT. Pateint feels well. He slept well. No n/v. Ate well yesterday. NPO for possible procedure today. No CP or SOB. Exam Narrative: Exam Narrative: AF 98.1 151/96 73 18 98% ra Gen - NARD Chest - CTA bilaterally, nml RR CV - RRR S1/S2. Telemetry showing 10 beat run of NSVT (with one nml QRS in the middle of the run). Abd - Soft, NT/ND, Positive BS Ext - No pedal edema. Psych - Nml mood and affect Skin - Warm and dry Objective Data Vital Signs Vital Signs: Vital Signs - 24 hr 06/05/20 09:46 06/05/20 10:00 06/05/20 12:00 Temperature 98.1 F Pulse Rate 68 74 Respiratory Rate 24 H 21 H Blood Pressure 158/104 H 134/94 H 136/90 Pulse Oximetry 100 97 06/05/20 12:26 06/05/20 12:42 06/05/20 13:40 Temperature Pulse Rate Respiratory Rate Blood Pressure 136/90 122/73 117/76 Pulse Oximetry 06/05/20 14:00 06/05/20
--- NOTE | 2020-06-06 09:49 | PM.PNCARD ---
Progress Note: A&P Assessment and Plan (1) Non-STEMI (non-ST elevated myocardial infarction): Code(s): I21.4 - Non-ST elevation (NSTEMI) myocardial infarction Status: Acute Assessment and Plan: increasingly suspect plaque rupture rather than hypertensive emergency. Will call hematology technologist in stat to perform echocardiogram. Continue high-dose statin, aspirin. Will start heparin drip per protocol. Continue metoprolol, losartan. increase metoprolol tartrate 50 mg p.o. b.i.d. continue current dose of losartan. Wean nitro drip long as blood pressure is less than 160/100. Catheterization to be performed but timing is pending (2) Hypertensive emergency: Code(s): I16.1 - Hypertensive emergency Status: Acute Assessment and Plan: as above. Up titrate as needed. 10 mg IV hydralazine p.r.n. (3) Tobacco dependence: Code(s): F17.200 - Nicotine dependence, unspecified, uncomplicated Status: Acute Assessment and Plan: tobacco cessation advised (4) Dyslipidemia: Code(s): E78.5 - Hyperlipidemia, unspecified Status: Acute Assessment and Plan: on statin (5) New onset type 2 diabetes mellitus: Code(s): E11.9 - Type 2 diabetes mellitus without complications Status: Acute Assessment and Plan: initiate workup per hospitalist Subjective Date/time seen: 06/06/20 09:49 Interval history: 45yo male with hx of HTN here for chest pain and found to have HTN emergency, hyperglycemia/new onset DM, and NSTEMI. Patient currently on NTG drip. date of service 06/06/2020: no chest pain, shortness of breath. Feels good. Did have a short run of nonsustained VT last night Review of Systems Review of Systems: All systems reviewed & are unremarkable except as noted in HPI and below Constitutional: Constitutional: Denies excessive sweating, Reports headache(s) and Denies weakness Eyes: Eyes: Denies blurry vision ENT: Reports Normal hearing present, Reports headache(s) and Denies neck pain Cardiovascular: Cardiovascular: Reports chest pain and Denies dyspnea Respiratory: Respiratory: Denies dyspnea Gastrointestinal: Gastrointestinal: Denies abdominal pain Genitourinary: Genitourinary: Denies dysuria Musculoskeletal: Musculoskeletal: Denies neck pain Integumentary/Breasts: Skin/Breast: Denies dry skin Neurologic: Reports Normal hearing present, Denies behavioral changes, Reports headache(s) and Denies weakness Psychiatric: Psychiatric: Denies behavioral changes Endocrine: Endocrine: Denies excessive sweating Hematologic/Lymphatic: Hematologic/Lymphatic: Denies easy bleeding Allergic/Immunologic: Allergic/Immunologic: Denies GI upset with certain foods Exam Narrative: Exam Narrative: patient awake alert. Pleasant in no acute distress Const: General: comfortable and no acute distress HENMT: General nose exam: Normal nares present Eyes: Sclera: sclerae normal Neck: Neck: supple and no JVD Chest: Other: no reproducible chest wall pain to palpation Resp: Auscultation: clear to auscultation bilaterally Cardio: Rate: regular rate Rhythm: regular rhythm Heart sounds: no murmurs Skin: General skin exam: normal color Neuro: Cranial nerves: Yes Normal hearing present Cognition (Neuro): normal cognition Speech: normal speech Extrem: General: normal to inspection, no edema and no pedal edema Psych: Mental Status: mental status grossly normal Objective Data Vital Signs Vital Signs: Vital Signs - 24 hr 06/05/20 10:00 06/05/20 12:00 06/05/20 12:26 Temperature 36.7 C Pulse Rate 68 74 Respiratory Rate 24 H 21 H Blood Pressure 134/94 H 136/90 136/90 Pulse Oximetry 100 97 06/05/20 12:42 06/05/20 13:40 06/05/20 14:00 Temperature Pulse Rate 76 Respiratory Rate 21 H Blood Pressure 122/73 117/76 123/86 Pulse Oximetry 06/05/20 14:54 06/05/20 15:41 06/05/20 16:00 Temperature 36.7 C
[2020-06-06] MEDS: ASPIRIN 81 MG CHEWABLE TABLET PO (10:12)
[2020-06-06] MEDS: ATORVASTATIN 40 MG TABLET PO (10:12)
[2020-06-06] MEDS: LOSARTAN POTASSIUM 50 MG TABLET PO (10:13)
[2020-06-06] MEDS: NICOTINE (*PBKC) 14 MG PATCH 1 PATCH TRANSDERM (10:13)
[2020-06-06] MEDS: METOPROLOL TARTRATE 50 MG TAB PO ×2 (10:13→20:27)
[2020-06-06] MEDS: MAGNESIUM SULF 2 GM/WATER 50ML 2 GM/50 ML BAG IVPB (11:35)
[2020-06-06 11:43] LABS: Glucose Point of Care 301 (65-105)
[2020-06-06] MEDS: INSULIN ASPART (*BKC) 100 UNITS/ML 6 UNITS SUB-Q ×2 (12:44→17:41)
[2020-06-06 17:00] LABS: Glucose Point of Care 258 (65-105)
[2020-06-06] MEDS: HEPARIN SOD/D5W 100 UNITS/ML 25,000 UNITS/250 ML BAG 22 UNITS IV CONT (17:31)
[2020-06-06] MEDS: METOPROLOL TARTRATE INJ 5 MG/5 ML VIAL IV PUSH (18:35)
[2020-06-06 20:16] LABS: Partial Thromboplastin Time 80.8 SECONDS (22.3-36.8)
[2020-06-06] MEDS: INSULIN GLARGINE (*BKC) 100 UNITS/ML 30 UNITS SUB-Q (20:30)
[2020-06-07] VITALS (23 sets, daily range): BP systolic 127–175; BP diastolic 62–114; PULSE 57–100; RESP 12–20; TEMP 36.4–37.1; O2SAT 98–100
[2020-06-07 02:55] LABS: Hematocrit 42.8 % (42.0-52.0); Hemoglobin 14.3 g/dL (14.0-18.0); Mean Corpuscular HGB Conc 33.4 g/dl (32-36); Mean Corpuscular Hemoglobin 26.8 pg (26-34); Mean Corpuscular Volume 80.3 fl (80-100); Mean Platelet Volume 10.6 fl (7.4-10.4); Platelet Count Result 232 k/mm3 (150-375); Red Blood Count 5.33 M/mm3 (4.6-6.20); White Blood Count 9.3 K/mm3 (4.5-10.0)
[2020-06-07] MEDS: METOPROLOL TARTRATE INJ 5 MG/5 ML VIAL IV PUSH ×2 (03:06→23:47)
[2020-06-07 03:07] LABS: Albumin Level 3.7 g/dL (3.5-5.1); Anion Gap 6 mmol/L (8-16); Blood Urea Nitrogen 10 mg/dL (9-20); Calcium 8.8 mg/dL (8.4-10.2); Carbon Dioxide 28 mmol/L (22-30); Chloride 99 mmol/L (98-107); Estimated CRCL calculation 142 ml/min; Estimated Glomerular Filt Rate > 60; Glucose 260 mg/dL (75-110); INR 0.9; Magnesium 2.1 mg/dL (1.6-2.3); Phosphorus 3.6 mg/dL (2.5-4.5); Potassium 3.9 mmol/L (3.4-5.0); Prothrombin Time 12.3 Seconds (11.1-14.7); Sodium 133 mmol/L (137-145)
[2020-06-07 03:09] LABS: Partial Thromboplastin Time 68.4 SECONDS (22.3-36.8)
[2020-06-07] MEDS: HEPARIN SODIUM 5,000 UNITS/ML VIAL 3500 UNITS IV PUSH (03:19)
[2020-06-07] MEDS: HEPARIN SOD/D5W 100 UNITS/ML 25,000 UNITS/250 ML BAG 24 UNITS IV CONT (06:03)
--- NOTE | 2020-06-07 07:20 | WPDINTPN ---
Progress Note: A&P Assessment and Plan (1) Non-STEMI (non-ST elevated myocardial infarction): Code(s): I21.4 - Non-ST elevation (NSTEMI) myocardial infarction Status: Acute Assessment and Plan: patient now chest pain-free and troponin trending down. continue heparin infusion, high-dose statin and aspirin. he is also on metoprolol and losartan plan for cardiac catheterization today. Nitroglycerin infusion was weaned off and blood pressure has remained in a controlled range with p.o. and IV medications (2) Hypertensive emergency: Code(s): I16.1 - Hypertensive emergency Status: Acute Assessment and Plan: Nitroglycerin infusion was weaned off and blood pressure has remained in a controlled range with p.o. and IV medications Continue losartan with 50 mg and metoprolol and IV p.r.n. hydralazine and Lopressor (3) New onset type 2 diabetes mellitus: Code(s): E11.9 - Type 2 diabetes mellitus without complications Status: Acute Assessment and Plan: Continue insulin sliding scale. Lantus dose will be further increased today continue with meal insulin Dietitian and diabetic Education consult has been requested. (4) Dyslipidemia: Code(s): E78.5 - Hyperlipidemia, unspecified Status: Acute Assessment and Plan: Continue high-dose statin. (5) Tobacco dependence: Code(s): F17.200 - Nicotine dependence, unspecified, uncomplicated Status: Acute Assessment and Plan: encouraged to stop smoking. He is currently on nicotine patch as per patient's request (6) DVT prophylaxis: Code(s): Z29.9 - Encounter for prophylactic measures, unspecified Status: Acute Assessment and Plan: IV heparin drip. Additional Plan DVT prophylaxis with systemic anticoagulation GI prophylaxis not indicated full code Subjective Date/time seen: 06/07/20 0720 Patient feels better with no new complaints today. He denies any chest pain shortness of breath overnight. He is eager to get his procedure done and be discharged. Nitroglycerin infusion was weaned off and blood pressure has remained in a controlled range with p.o. and IV medications Patient denies fever, chest pain, shortness of breath, cough, nausea vomiting, abdominal pain,, diarrhea, headache or constipation. Review of Systems Review of Systems: All systems reviewed & are unremarkable except as noted in HPI and below ( subjective) Exam Narrative: Exam Narrative: General awake and alert not in acute distress Eyes PERRLA normal conjunctiva no discharge HEENT no discharge Neck supple dull tenderness no deformity JVD not elevated CVS S1-S2 no murmur Respiratory no wheezes or crepitation respiration nonlabored GI soft nontender nondistended no hepatosplenomegaly Chest wall no tenderness or deformity Back nontender no deformity FORESTRY TECHNICAL OFFICER alert oriented x3 and grossly nonfocal neurological exam Psychiatric cooperative appropriate mood and affect Musculoskeletal normal range of motion or joint swelling no rashes Extremities no edema Objective Data Vital Signs Vital Signs: Vital Signs - 24 hr 06/06/20 08:46 06/06/20 10:00 06/06/20 10:13 Temperature Pulse Rate 73 80 81 Respiratory Rate 18 Blood Pressure 151/96 H 152/91 H Pulse Oximetry 06/06/20 11:44 06/06/20 12:00 06/06/20 13:00 Temperature 36.4 C L Pulse Rate 66 65 Respiratory Rate 14 Blood Pressure 144/83 H 148/83 H Pulse Oximetry 98 06/06/20 14:00 06/06/20 14:16 06/06/20 16:00 Temperature Pulse Rate 71 75 Respiratory Rate 20 20 Blood Pressure 140/83 140/83 Pulse Oximetry 97 98 06/06/20 16:03 06/06/20 18:00 06/06/20 18:35 Temperature 36.4 C L Pulse Rate 76 84 Respiratory Rate 20 Blood Pressure 176/97 H Pulse Oximetry 06/06/20 20:00 06/06/20 20:27 06/06/20 22:00 Temperature 37.1 C Pulse Rate 77 74 75 Respirato
[2020-06-07 07:54] LABS: Glucose Point of Care 269 (65-105)
[2020-06-07] MEDS: INSULIN ASPART (*BKC) 100 UNITS/ML SUB-Q ×2 (07:55→17:00)
[2020-06-07] MEDS: ASPIRIN 81 MG CHEWABLE TABLET PO (07:55)
--- NOTE | 2020-06-07 08:24 | PCDIET ---
MD consult received. Patient NPO for possible procedure. Will provide diabetic diet education upon diet advancement; plan to re-evaluate appropriateness of education 06/08/20.
--- NOTE | 2020-06-07 08:24 | WPDMODSED ---
Moderate Sedation Note-Pt Data Patient Data Allergies Allergy/AdvReac Type Severity Reaction Status Date / Time Penicillins Allergy Unknown Unknown Verified 06/04/20 14:30 Home Medications Medication Instructions Recorded Confirmed Type No Home Medications 06/04/20 06/04/20 History Current Medications: Active Medications Acetaminophen (Tylenol Tablet) 650 mg PO Q4H PRN PRN Reason: Mild Pain (1-3) Last Admin: 06/06/20 12:48 Dose: 650 mg Documented by: Al Hydrox/Mg Hydrox/Simethicone (Mylanta) 30 ml PO Q6H PRN PRN Reason: Indigestion Aspirin (Aspirin Chewable) 81 mg PO DAILY@0800 [facility] Last Admin: 06/07/20 07:55 Dose: 81 mg Documented by: Atorvastatin Calcium (Lipitor) 40 mg PO DAILY [facility] Last Admin: 06/06/20 10:12 Dose: 40 mg Documented by: Dextrose (Dextrose 50% Syringe) 12.5 gm IV PUSH PRN PRN; Protocol PRN Reason: Hypoglycemia Glucagon (Glucagon For Inj) 1 mg IM PRN PRN; Protocol PRN Reason: Hypoglycemia Glucose (Glutose 15) 15 gm PO PRN PRN; Protocol PRN Reason: Hypoglycemia Heparin Sodium (Porcine) (Heparin Sodium) 4,000 units IV PUSH PRN PRN PRN Reason: aPTT less than 55 seconds Last Admin: 06/06/20 00:17 Dose: 4,000 units Documented by: Heparin Sodium (Porcine) (Heparin Sodium) 3,500 units IV PUSH PRN PRN PRN Reason: aPTT 55 - 70 seconds Last Admin: 06/07/20 03:19 Dose: 3,500 units Documented by: Hydralazine HCl (Apresoline Hcl Inj) 20 mg IV PUSH Q4H PRN PRN Reason: Hypertension Dextrose (Dextrose 5% 1,000 Ml) 1,000 mls @ 100 mls/hr IVPB PRN PRN; Protocol PRN Reason: Hypoglycemia Nitroglycerin/Dextrose (Nitroglycerin In 5% Dextrose 50 Mg) 50 mg in 250 mls @ 0 mls/hr IV CONT .Q0M [facility]; Protocol Last Titration: 06/06/20 14:16 Dose: 0 mcg/min, 0 mls/hr Documented by: Heparin Sodium/Dextrose (Heparin Sodium/D5w 100 Units/Ml) 25,000 units in 250 mls @ 24 mls/hr IV CONT .[id number] [facility]; Protocol Last Titration: 06/07/20 07:00 Dose: 2,400 units/hr, 24 mls/hr Documented by: Insulin Aspart (Novolog) 3 - 6 units SUB-Q TIDWM [facility]; Protocol Last Admin: 06/07/20 07:55 Dose: 4 units Documented by: Insulin Aspart (Novolog) 6 units SUB-Q TIDWM [facility] Last Admin: 06/07/20 08:12 Dose: Not Given Documented by: Insulin Glargine (Lantus) 30 units SUB-Q HS [facility] Last Admin: 06/06/20 20:30 Dose: 20 units Documented by: Losartan Potassium (Cozaar) 50 mg PO QAM [facility] Last Admin: 06/06/20 10:13 Dose: 50 mg Documented by: Metoprolol Tartrate (Lopressor Inj) 5 mg IV PUSH Q4H PRN PRN Reason: SBP > 160 Last Admin: 06/07/20 03:06 Dose: 5 mg Documented by: Metoprolol Tartrate (Lopressor) 50 mg PO Q12HR [facility] Last Admin: 06/06/20 20:27 Dose: 50 mg Documented by: Nicotine (Nicoderm Cq 14 Mg) [facility] Last Admin: 06/06/20 10:13 Dose: 1 patch Documented by: Nitroglycerin (Nitrostat Subl 0.4 Mg (1/150)) 0.4 mg SUBLINGUAL Q5MIN PRN PRN Reason: Chest Pain Ondansetron HCl (Zofran Inj) 4 mg IV PUSH Q6H PRN PRN Reason: Nausea And Vomiting Sedation/Anesthesia: No previous sedation/anesthesia problems (including family history). [facility] Past Medical History Medical History Dyslipidemia Hypertension Tobacco dependence Type 2 diabetes mellitus Surgical History Surgical History History of right inguinal hernia repair (~02/20/16) Family History Family History Father Hypertension Diabetes mellitus Parkinson disease Mother Hypertension Family history of pancreatic cancer, Onset Age: 42 Patient's mother is Other Family history of allergic disorder Family history of malignant neoplasm Social History Social History Social History: Surrogate decision maker: Anaid Godwin, . Code stat
--- NOTE | 2020-06-07 08:26 | WPDHPUPDATE1 ---
History and Physical Update Update Date/Time: 06/07/20 08:26 History and Physical has been reviewed, including an updated exam of the patient. There are NO changes in the patient's condition. Risks, benefits, and alternatives have been discussed and questions answered. Patient agrees to proceed with procedure.
--- NOTE | 2020-06-07 08:41 | PC.NURSE ---
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
--- NOTE | 2020-06-07 10:19 | WPDCARDPROC ---
Cardiac Cath Procedure Note Date of procedure:: 06/07/20 Performing physician:: Frank Dumont MD Procedure Procedure note:: CARDIAC CATHETERIZATION AND PERCUTANEOUS CORONARY INTERVENTION REPORT DATE OF PROCEDURE: 06/07/2020 INDICATION FOR PROCEDURE:Non ST-elevation MN BRIEF CLINICAL HISTORY: 45-year-old male with no known prior cardiac history; history of tobacco abuse presented to [facility] on 06/04/2020 with complaints of chest discomfort that started about 2 days prior to admission. EKG showed subtle ST-T abnormality in the inferior leads. Troponins were elevated with peak troponin level of 20.9 Patient's blood pressure was severely elevated at presentation at 212/123 mmHg. Patient's blood sugar was found to be 503 with HGB A1c of 11.3. Patient was managed for his severely elevated blood pressure and hyperglycemia. His chest discomfort resolved after blood pressure control without recurrence. He had an echocardiogram on 06/05/2020 which showed normal LV systolic function without segmental wall motion abnormality. In light of the circumstance, emergent cardiac catheterization was not deemed to be absolutely necessary over the weekend. He was brought to the laborer [facility] today for coronary angiogram to evaluate for significant obstructive CAD. Benefits and risks of the procedure were discussed with the patient in depth, and informed consent was obtained prior to the procedure. Risks of the procedure include but are not limited to vascular complications including groin hematoma, retroperitoneal bleed, vessel perforation; periprocedural MN, cardiac arrhythmias, stroke, contrast induced nephropathy, and . After discussing all the benefits, risks and alternatives, patient was willing to proceed with the procedure. PROCEDURES PERFORMED: 1. Left heart catheterization- Selective left and right coronary angiogram; left ventriculogram and hemodynamic assessment 2. Percutaneous coronary intervention- Balloon angioplasty and stenting of OM 1 branch using a 2.75 x 18 mm Orsiro sirolimus eluting stent. 3. Selective right common femoral angiogram and deployment of Angio-Seal hemostatic device 4. Moderate sedation-CPT code 14744 MODERATE SEDATION: Midazolam 3 mg; fentanyl 75 mcg. Start time 0856 , Stop time 1012 ; Total [id number] time 76 minutes; Oswaldo Ji RN was trained observer for moderate sedation. ACCESS SITE: Right common femoral artery PROCEDURE NOTE: After obtaining informed consent, patient was brought to catheterization lab and prepped and draped in a usual sterile manner. After local anesthesia with lidocaine, right common femoral artery access was taken with micropuncture needle followed by insertion of a 6 [place] sheath. Selective left and right coronary angiogram was performed using 5 [place] JL4 and JR4 catheters respectively. Orthogonal views were taken. Next, a 5 [place] pigtail catheter was advanced in the LV cavity and was flushed with normal saline. LV pressure measurement was performed. After this, left ventriculogram was performed. The catheter was flushed again, and gradient across the aortic valve was measured on the pullback of the catheter. Selective right common femoral angiogram was performed after PCI followed by successful deployment of Angio-Seal vascular closure device. Patient tolerated procedure well without any immediate procedure related complications. FINDINGS: LEFT MAIN CORONARY: The left main coronary is a large caliber, long vessel, no significant focal stenosis. The vessel trifurcates into LAD, ramus intermedius and left circumflex branches. LEFT ANTERIOR DESCENDING ARTERY: The LAD is a medium caliber vessel, tapers distally and reaches the LV apex. There is sometortuosity in the mid segment. No significant focal stenosis seen. Diagonal branch is medium size, tortuous vessel with minor plaque in the mid segment. RAMUS INTERMEDIUS: The ramus medius is a medium caliber vessel w
[2020-06-07] MEDS: LOSARTAN POTASSIUM 50 MG TABLET PO (10:56)
[2020-06-07] MEDS: NICOTINE (*PBKC) 14 MG PATCH 1 PATCH TRANSDERM (10:56)
[2020-06-07] MEDS: METOPROLOL TARTRATE 50 MG TAB PO ×2 (10:57→20:09)
[2020-06-07] MEDS: SODIUM CHLORIDE 0.9% IV 1,000 ML 125 ML IV CONT (11:02)
[2020-06-07 11:56] LABS: Glucose Point of Care 185 (65-105)
[2020-06-07] MEDS: INSULIN ASPART (*BKC) 100 UNITS/ML 6 UNITS SUB-Q ×2 (12:12→17:01)
[2020-06-07 16:59] LABS: Glucose Point of Care 206 (65-105)
--- NOTE | 2020-06-07 17:11 | PM.IMPN ---
Progress Note: A&P Assessment and Plan (1) Non-STEMI (non-ST elevated myocardial infarction): Code(s): I21.4 - Non-ST elevation (NSTEMI) myocardial infarction Status: Acute Assessment and Plan: Patient presents with complaints of intermittent midsternal chest pain. Initial EKG showed QS pattern in the anterior septal leads concerning for old ME. Repeat EKG however essentially normal (possibly lead placement issues on the 1st EKG). EKG 06/05/20 showing nonspecific T wave changes in the high lateral leads. Troponin climbed to 20.9. Continue medical management with Metoprolol, Cozaar, Lipitor, ASA. CAth today OM1 90% which was stented. no other significant lesions with EF of 70%. Brilinta added and possible discharge 06 08 (2) Hypertensive emergency: Code(s): I16.1 - Hypertensive emergency Status: Acute Assessment and Plan: Blood pressure was 212/123 on arrival. BP has been noted to be elevated as far back as 2014 (184/110). He has HTN emergency given the NSTEMI in light of the severe HTN. He has been started on Cozaar and Metoprolol. . Anti-HTN medications advanced (3) New onset type 2 diabetes mellitus: Code(s): E11.9 - Type 2 diabetes mellitus without complications Status: Acute Assessment and Plan: A1c 11.3%. The patient's blood glucose was reviewed on 06/07. Glucose remains poorly controlled. Continue AccuCheks covering with sliding scale. Hypoglycemia protocol available as needed. Advanced Lantus last night and fasting glucose still 260 this morning. Continue to advance Lantus to 40 U this pm. Continue meal time Novolog. Continue Diabetic diet. Audit Intern and staff educator to see. Convert to oral regiment with Lantus at night before discharge. (4) Tobacco dependence: Code(s): F17.200 - Nicotine dependence, unspecified, uncomplicated Status: Acute Assessment and Plan: Patient smokes 1ppd. Smoking cessation is imperative and patient was educated about the benefits of smoking cessation. Continue nicotine patch. (5) Dyslipidemia: Code(s): E78.5 - Hyperlipidemia, unspecified Status: Acute Assessment and Plan: TC 298, LDL 148 and HDL 29. LFTs notes with mild elevation of AST. Continue high dose atorvastatin. (6) DVT prophylaxis: Code(s): Z29.9 - Encounter for prophylactic measures, unspecified Status: Acute Assessment and Plan: Heparin drip off and lovenox 06/08 Subjective Date/time seen: 06/07/20 17:11 Interval history: Date of visit 06/07 45yo male with hx of HTN here for chest pain and found to have HTN emergency, hyperglycemia/new onset DM, and NSTEMI. Patient currently pain free and to have cath today. . Pateint feels well. He slept well. No n/v. Ate well yesterday. No CP or SOB. Exam Narrative: Exam Narrative: AF 98.1 140/70 62 18 100% ra Gen - NARD Chest - CTA bilaterally, nml RR CV - RRR S1/S2. Abd - Soft, NT/ND, Positive BS Ext - No pedal edema. Psych - Nml mood and affect Skin - Warm and dry Objective Data Vital Signs Vital Signs: Vital Signs - 24 hr 06/06/20 18:00 06/06/20 18:35 06/06/20 20:00 Temperature 37.1 C Pulse Rate 76 84 77 Respiratory Rate 20 18 Blood Pressure 176/97 H 156/92 H Pulse Oximetry 100 06/06/20 20:27 06/06/20 22:00 06/07/20 00:00 Temperature 37.1 C Pulse Rate 74 75 69 Respiratory Rate 18 16 Blood Pressure 175/108 H 136/98 H Pulse Oximetry 100 100 06/07/20 02:00 06/07/20 03:06 06/07/20 04:00 Temperature 36.9 C Pulse Rate 63 69 61 Respiratory Rate 20 14 Blood Pressure 156/91 H 127/86 Pulse Oximetry 100 100 06/07/20 06:00 06/07/20 08:00
[2020-06-07] MEDS: hydrALAZINE HCL 20 MG/ML VIAL IV PUSH (18:37)
[2020-06-07] MEDS: TICAGRELOR 90 MG TABLET PO (20:08)
[2020-06-07] MEDS: ATORVASTATIN 40 MG TABLET 80 MG PO (20:08)
[2020-06-07] MEDS: INSULIN GLARGINE (*BKC) 100 UNITS/ML 40 UNITS SUB-Q (20:09)
[2020-06-07 20:15] LABS: Glucose Point of Care 284 (65-105)
[2020-06-08] VITALS (7 sets, daily range): BP systolic 124–151; BP diastolic 76–101; PULSE 62–92; RESP 10–18; TEMP 36.9; O2SAT 98–100; BMI 27.7
[2020-06-08 04:35] LABS: Hematocrit 42.8 % (42.0-52.0); Hemoglobin 14.4 g/dL (14.0-18.0); Mean Corpuscular HGB Conc 33.6 g/dl (32-36); Mean Corpuscular Hemoglobin 27.2 pg (26-34); Mean Corpuscular Volume 80.9 fl (80-100); Mean Platelet Volume 10.3 fl (7.4-10.4); Platelet Count Result 225 k/mm3 (150-375); Red Blood Count 5.29 M/mm3 (4.6-6.20); Red Cell Distribution Width 13.2 % (11.5-14.5); White Blood Count 8.5 K/mm3 (4.5-10.0)
[2020-06-08 04:48] LABS: Anion Gap 5 mmol/L (8-16); Blood Urea Nitrogen 11 mg/dL (9-20); Calcium 9.3 mg/dL (8.4-10.2); Carbon Dioxide 28 mmol/L (22-30); Chloride 100 mmol/L (98-107); Estimated CRCL calculation 142 ml/min; Estimated Glomerular Filt Rate > 60; Glucose 247 mg/dL (75-110); Potassium 4.2 mmol/L (3.4-5.0); Sodium 133 mmol/L (137-145)
--- NOTE | 2020-06-08 08:17 | PC.NURSE ---
Pt received from ICU to room 212- a/o x3-pt oriented to room and rountines of floor - denies any c/o discomfort at this time
[2020-06-08] MEDS: METOPROLOL TARTRATE 50 MG TAB PO (08:25)
[2020-06-08] MEDS: ASPIRIN 81 MG CHEWABLE TABLET PO (08:28)
[2020-06-08] MEDS: LOSARTAN POTASSIUM 50 MG TABLET PO (08:28)
[2020-06-08] MEDS: TICAGRELOR 90 MG TABLET PO (08:28)
[2020-06-08] MEDS: INSULIN ASPART (*BKC) 100 UNITS/ML 6 UNITS SUB-Q (08:29)
[2020-06-08] MEDS: INSULIN ASPART (*BKC) 100 UNITS/ML SUB-Q (08:29)
[2020-06-08 08:31] LABS: Glucose Point of Care 290 (65-105)
--- NOTE | 2020-06-08 11:06 | PM.PNCARD ---
Progress Note: A&P Assessment and Plan (1) Non-STEMI (non-ST elevated myocardial infarction): Code(s): I21.4 - Non-ST elevation (NSTEMI) myocardial infarction Status: Acute Assessment and Plan: Echocardiogram 06/05/2020: Left ventricular chamber dimension is normal. Left ventricular systolic function is normal, estimated at 60-65%. There is mildly increased left ventricular wall thickness. The left ventricular diastolic function is grade I diastolic dysfunction. Global longitudinal strain is abnormal at -15 %. There is mild mitral valve regurgitation. Troponin peaked 20.9. Cardiac catheterization 06/07/2020: CAD- a) About 90% stenosis in the proximal segment of medium size OM1 branch; b) 20-30% plaque in the mid segment of ramus intermedius; c) 30-40% stenosis distal RCA 2. Hyperdynamic LV systolic function, EF more than 70%; LVEDP 12 mmHg 3. PCI- PTCA/stenting of high-grade stenosis in the OM1 branch of LCX using 2.75 x 18 mm Orsiro sirolimus eluting stent. 4. Systemic hypertension Continue aspirin, Brilinta, atorvastatin, losartan, Metoprolol tartrate. Right groin site without swelling or bleeding. No femoral bruit. No arrhythmias on monitor. (2) Hypertensive emergency: Code(s): I16.1 - Hypertensive emergency Status: Acute Assessment and Plan: Blood pressure improved. Monitor as an outpatient. (3) Tobacco dependence: Code(s): F17.200 - Nicotine dependence, unspecified, uncomplicated Status: Acute Assessment and Plan: Tobacco cessation discussed (4) Dyslipidemia: Code(s): E78.5 - Hyperlipidemia, unspecified Status: Acute Assessment and Plan: On statin (5) New onset type 2 diabetes mellitus: Code(s): E11.9 - Type 2 diabetes mellitus without complications Status: Acute Assessment and Plan: Diabetic Education completed Additional Plan OK to discharge from cardiac standpoint. See discharge instructions for follow-up. Plan discussed with Dr Atwood 10:00 a.m. 06/08/2020 Time Spent With Patient Time: Spent 20 minutes in the room discussing his medications including aspirin, Brilinta, atorvastatin, losartan and Metoprolol tartrate. Stressed the importance of not missing any doses of especially aspirin and Brilinta due to drug-eluting stent. Smoking cessation discussed. Activity restrictions and approximately when he will be able to go back to work. Follow-up appointment will be on the chart. Time with patient: 15 - 25 minutes Subjective Date/time seen: 06/08/20 11:06 Interval history: Follow up for : hx of HTN here for chest pain and found to have HTN emergency, hyperglycemia/new onset DM and NSTEMI. Date of service: 06/08/2020. Subject: Denied chest discomfort, shortness of breath, lightheadedness or palpitations. Ambulating in the benitez with no symptoms. Review of Systems Review of Systems: All systems reviewed & are unremarkable except as noted in HPI and below Constitutional: Constitutional: Denies excessive sweating, Denies headache(s) and Denies weakness Eyes: Eyes: Denies blurry vision ENT: Reports Normal hearing present, Denies headache(s) and Denies neck pain Cardiovascular: Cardiovascular: Denies chest pain and Denies dyspnea Respiratory: Respiratory: Denies dyspnea Gastrointestinal: Gastrointestinal: Denies abdominal pain Genitourinary: Genitourinary: Denies dysuria Musculoskeletal: Musculoskeletal: Denies neck pain Integumentary/Breasts: Skin/Breast: Denies dry skin Neurologic: Reports Normal hearing present, Denies behavioral changes, Reports headache(s) and Denies weakness Psychiatric: Psychiatric: Denies behavioral changes Endocrine: Endocrine: Denies excessive sweating Hematologic/Lymphatic: Hematologic/Lym
--- NOTE | 2020-06-08 11:27 | PCDIET ---
Nutrition education completed this date with patient and . See Nutritional Teaching for additional details.
--- NOTE | 2020-06-08 13:31 | PC.NURSE ---
stent card given to pt on discharged
--- NOTE | 2020-06-11 17:04 | PM.DS ---
DS: Admitting Diagnosis Admitting Diagnosis Admitting Diagnosis: Non-Stemi, Hyperglycemia, Hypertensive emergency DS: Discharge Diagnosis Discharge Diagnosis (1) Non-STEMI (non-ST elevated myocardial infarction): Code(s): I21.4 - Non-ST elevation (NSTEMI) myocardial infarction Status: Acute Assessment and Plan: Patient presents with complaints of intermittent midsternal chest pain. Initial EKG showed QS pattern in the anterior septal leads concerning for old OR. Repeat EKG however essentially normal (possibly lead placement issues on the 1st EKG). EKG 06/05/20 showing nonspecific T wave changes in the high lateral leads. Troponin climbed to 20.9. Continue medical management with Metoprolol, Cozaar, Lipitor, ASA. Cath OM1 90% which was stented. no other significant lesions with EF of 70%. Brilinta added and d/c 06/08 (2) Hypertensive emergency: Code(s): I16.1 - Hypertensive emergency Status: Acute Assessment and Plan: Blood pressure was 212/123 on arrival. BP has been noted to be elevated as far back as 2014 (184/110). He has HTN emergency given the NSTEMI in light of the severe HTN. He was started on Cozaar and Metoprolol. . and bp 140/84 at d/c (3) New onset type 2 diabetes mellitus: Code(s): E11.9 - Type 2 diabetes mellitus without complications Status: Acute Assessment and Plan: A1c 11.3%. Lantus was advanced to 40 HS with NovoLog 5 with each meal. Continue meal time Novolog. He was seen by diabetic education and dietitian. There was discussion of possible oral hypoglycemic IE metformin with Lantus at discharge but his sugars consistently ran high and short-acting insulin was continued. he will follow-up with primary care for further treatment (4) Tobacco dependence: Code(s): F17.200 - Nicotine dependence, unspecified, uncomplicated Status: Acute Assessment and Plan: Patient smokes 1ppd. Smoking cessation is imperative and patient was educated about the benefits of smoking cessation. Continue nicotine patch. (5) Dyslipidemia: Code(s): E78.5 - Hyperlipidemia, unspecified Status: Acute Assessment and Plan: TC 298, LDL 148 and HDL 29. LFTs notes with mild elevation of AST. Continue high dose atorvastatin. DS: Summary Hospital Course Hospital Course: 45-year-old white male admitted with chest pain, elevated blood sugar, and hypertension. EKG showed no definite acute ischemic changes but troponin peaked at 20. Non ST elevation myocardial infarction. Treated with heparin, beta-peter, statin, ARB, and nitrate. Cardiac catheterization 06/07 revealed 90% 1st obtuse marginal lesion which was stented. No other significant lesion this small 30 40% lesions. A1c 11.3 and placed on insulin and seen by diabetic educators. Discharged on the statin, Brilinta, aspirin, beta-peter, losartan, and Lantus 40 HS with NovoLog 5 with meals follow-up with cardiology in 2 weeks Time Spent with Patient Time attestation: Total time spent providing and/or coordinating discharge services: 35 minutes Exam Narrative: Exam Narrative: condition on discharge blood pressure 140/84 pulse is 66 saturating 100% on room air afebrile lungs clear CV no murmurs or gallops extremities without edema distal pulses 2+ and symmetrical cath site clean and intact he was up about with no further chest discomfort Discharge Plan Discharge Attending physician on discharge: Renan Gutierrez Consulting providers: Vicki Bedolla ; Paul Morley ; Gurmeet White ; Aileen Bloom ; Hazel Delatorre ; Nestor Dunne ; Laura Dorman ; Chencho Harper ; Mika Bob ; Frank Dumont ; Martin Brito
== END 2020-06-08 13:25 | disposition home or self-care (01) | DRG 247 ==
LOC: ANHED 12:48 → ANHIMU 15:04 → ANHICU 06-05 10:06 → ANHIMU 06-08 11:55 → ANHICU 06-10 09:49 → ANHIMU 06-10 09:49
PROVIDERS: Emergency Medicine Emergency Medical Services; Internal Medicine; Internal Medicine Cardiovascular Disease; Physician Assistant; Admitting Provider Internal Medicine; Emergency Provider Emergency Medicine; Visit Provider Internal Medicine
PROC: 4A023N7 Measurement of Cardiac Sampling and Pressure, Left Heart, Percutaneous Approach (ICD-10-PCS; CPT 93452; principal; 2020-06-07 08:30)
PROC: 027034Z Dilation of Coronary Artery, One Artery with Drug-eluting Intraluminal Device, Percutaneous Approach (ICD-10-PCS; CPT 92928; 2020-06-07 08:30)
PROC: 027034Z Dilation of Coronary Artery, One Artery with Drug-eluting Intraluminal Device, Percutaneous Approach (ICD-10-PCS; 2020-06-07 08:30)
DX: I21.4 Non-ST elevation (NSTEMI) myocardial infarction (principal); I16.1 Hypertensive emergency; E78.5 Hyperlipidemia, unspecified; E11.65 Type 2 diabetes mellitus with hyperglycemia; F17.200 Nicotine dependence, unspecified, uncomplicated
CPT/HCPCS: 36415; 36600; 71046; 71275; 80048; 80053; 80061; 80069; 80307; 81001; 82010; 82375; 82805; 83036; 83050; 83735; 83880; 84100; 84443; 84484; 85025; 85027; 85380; 85610; 85730; 93005; 93306; 93458; 96365; 96366; 96372; 96375; 96376; 99291; A9270; C1725; C1760; C1769; C1784; C1887; C1894; C9600; G0269; G0378; J0131; J0360; J0583; J1644; J1650; J1815; J2060; J2250; J2270; J3010; J3475; J7030; J7040; Q9967

== ENCOUNTER 2021-06-18 18:33 | Emergency (ER) | payer BC, SELFPAY ==
--- NOTE | 2021-06-18 19:00 | PC.NURSE ---
Pt. called 3x for triage no answer.
--- NOTE | 2021-06-18 19:26 | PC.NURSE ---
Patient called for triage at [phone], no answer.
--- NOTE | 2021-06-18 19:35 | PC.NURSE ---
Called patient again at [phone], no answer. Per previous nurse, MARI Gutierrez patient was alert and oriented and ambulating with a steady gait. Patient no where to be found, not in waiting room or outside.
== END 2021-06-18 20:08 | disposition left against medical advice (07) ==
DX: Z53.21 Procedure and treatment not carried out due to patient leaving prior to being seen by health care provider (principal)
CPT/HCPCS: 99199

== ENCOUNTER 2023-04-17 13:53 | Outpatient (CLI) | payer BC, SELFPAY ==
--- NOTE | ~2023-04-17 | US_ITS ---
EXAMINATION: US art doppler w press LE BI DATE: 04/17/2023 14:45 INDICATION: Peripheral vascular disease, unspecified. TECHNIQUE: Segmental pressures and plethysmographic and Doppler waveforms of the brachial and lower e xtremity arteries were obtained. COMPARISON: None. FINDINGS: Right and left brachial artery pressures of 184 mm Hg and 171 mm Hg, respectively, are concordant (no rmal difference <= 30 mmHg). The right high-thigh pressure index is 0.66 (normal > 1.2). The right ankle-brachial index (RACH) is 0 .47 (normal >= 0.9-1.0). The right great toe-brachial index (TBI) is 0.24 (normal >= 0.65). Arterial Doppler waveforms are biphasic from common femoral artery to the ankle. The left high-thigh pressure index is 0.64. The left RACH is 0.55. The left TBI is 0.39. Arterial Dopp ler waveforms are biphasic from common femoral artery to the ankle. IMPRESSION: 1. Severely decreased right RACH and moderately decreased left RACH, consistent with arterial occlusive disease, likely predominantly in the aortoiliofemoral distribution. Reviewed, dictated and finalized at location A. IMPRESSION: 1. Severely decreased right RACH and moderately decreased left RACH, consistent w ith arterial occlusive disease, likely predominantly in the aortoiliofemoral di stribution.
== END 2023-04-17 13:54 | disposition home or self-care (01) ==
PROVIDERS: PCP Physician Assistant; Visit Provider Physician Assistant
DX: I73.9 Peripheral vascular disease, unspecified (principal)
CPT/HCPCS: 93923